=== PATIENT | female | born 1955 | race Caucasian/White ===

== ENCOUNTER 2019-02-16 21:01 | Emergency (ER) | payer BC, OTHER ==
--- NOTE | 2019-02-16 21:18 | EDPHY ---
H & P Stated Complaint: UTI symptoms, back pain, "I feel a little confused", fever Time Seen by Provider: 02/16/19 21:18 - Personal History Current Tetanus/Diphtheria Vaccine: Yes Current Tetanus Diphtheria and Acellular Pertussis (TDAP): Yes - Medical/Surgical History Hx Asthma: No Hx Chronic Respiratory Disease: No Hx Diabetes: No Hx Cardiac Disease: No Hx Renal Disease: No Hx Cirrhosis: No Hx Alcoholism: No Hx HIV/AIDS: No Hx Splenectomy or Spleen Trauma: No Other PMH: bladder sling, cervical fusion, tubal ligation - Social History Smoking Status: Never smoked Constitutional: Initial Vital Signs Temperature (C) 37.3 C 02/16/19 21:09 Heart Rate 104 H 02/16/19 21:09 Respiratory Rate 20 02/16/19 21:09 Blood Pressure 160/100 H 02/16/19 21:09 O2 Sat (%) 96 02/16/19 21:09 O2 Delivery Mode Room Air Allergies/Adverse Reactions: No Known Allergies Allergy (Unverified 02/16/19 21:08) Home Medications: Medication Instructions Recorded Cephalexin [Keflex (RX)] 500 mg PO TID #30 cap 02/16/19 Cholecalciferol (Vitamin D3) 02/16/19 [Vitamin D3] Meth/Meblue/Sod Phos/Psal/Hyos 02/16/19 [Uribel Capsule] Nitrofurantoin Macrobid [Macrobid] 02/16/19 amLODIPine BESYLATE [Norvasc 10 mg 02/16/19 (*)] Medical Decision Making ED Course/Re-evaluation: CHIEF COMPLAINT: UTI symptoms, back pain HISTORY OF PRESENT ILLNESS: The patient is a 64 y/o female with a history of a bladder sling and frequent UTI's complaining of feeling dehydrated, having back pain, and feeling confused onset yesterday. After the bladder sling surgery, she developed frequent bladder infections and was placed on Macrobid prophylactically. Starting yesterday she developed a burning sensation when she urinated, so she started taking Macrobid. She then developed bilateral back pain and a headache, so she presented to an urgent care. She was advised to take Keflex for her symptoms. However, she has not taken this antibiotic yet, but her symptoms have not improved. No fever, body aches, lightheadedness, chest pain, heart palpitations , shortness of breath, cough, abdominal pain, bowel complaints, numbness, paresthesias. REVIEW OF SYSTEMS: A comprehensive 10 system review of systems is otherwise negative aside from elements mentioned in the history of present illness and medical decision making. PHYSICAL EXAM: HR, BP, O2 Sat, RR. Temp noted General Appearance: Alert, well hydrated, appropriate, and non-toxic appearing. Head: Atraumatic without scalp tenderness or obvious injury Eyes: Pupils equal, round, reactive to light and accommodation, EOMI, no trauma , no injection. Ears: Clear bilaterally, no perforation, normal landmarks Nose: Atraumatic, no rhinorrhea, clear. Throat: There is no erythema or exudates, no lesions, normal tonsils, mucus membranes moist. Neck: Supple, 2+ carotid upstroke, nontender, no lymphadenopathy. Respiratory: No retractions, no distress, no wheezes, and no accessory muscle use. Lungs are clear to auscultation bilaterally. Cardiovascular: Regular rate and rhythm, no murmurs, rubs, or gallops. Bilateral carotid, radial, dorsalis pedis, and posterior tibial pulses intact. Good capillary refill all extremities. Gastrointestinal: Abdomen is soft, nontender, non-distended, no masses, no rebound, no guarding, no peritoneal signs. Back: Bilateral CVA tenderness to palpation. Musculoskeletal: Normal active ROM of all extremities, atraumatic. Neurological: Alert, appropriate, and interactive. The patient has normal DTRs and non-focal cranial nerves, motor, sensory, and cerebellar exam. Skin: No rashes, good turgor, no nodules on palpation. Past medical history: Frequent UTI's Past surgical history: Bladder sling, cervical fusion, tubal ligation Family history: Denies Social history: Recently moved to [place] from [place], retired, DIAGNOSTICS/PROCEDURES/CRITICAL CARE TIME: Not indicated. DIFFERENTIAL DIAGNOSIS: The differential diagnosis for the patient's flank pain included but was not limited to musculoskeletal causes, kidney stone, pyelonephritis, shingles, diverticulitis, appendicitis, and aortic aneurysm. MEDICAL DECISION MAKING: The patient is a 64 y/o female with a history of a bladder sling and frequent UTI's presenting with feeling dehydrated, having back pain, and feeling confused onset yesterday. After the bladder sling surgery, she developed frequent bladder infections and was placed on Macrobid prophylactically. Starting yesterday she developed a burning sensation when she urinated, so she started taking Macrobid. On exam she has bilateral CVA tenderness. I suspect she has an uncomplicated pyelonephritis. Labs ordered; 1gm IV Ceftriaxone and 1L IV NS administered. I will also prescribe this patient Keflex for the pyelonephritis. 2147: Reassessed patient and discussed labs which reveal a UTI. I have discussed plan for Keflex, which she is comfortable with. She is requesting a referral to a PCP, urologist, and director of professional services as she is in [place] for 9 months. Return precautions provided; patient is comfortable with this plan. - Data Points Laboratory Results: 02/16/19 21:10 Urine Color YELLOW Urine Appearance CLEAR Urine pH 7.0 (5.0-7.5) Ur Specific [place] 1.012 (1.002-1.030) Urine Protein NEGATIVE (NEGATIVE) Urine Ketones 1+ H (NEGATIVE) Urine Blood NEGATIVE (NEGATIVE) Urine Nitrate NEGATIVE (NEGATIVE) Urine Bilirubin NEGATIVE (NEGATIVE) Urine Urobilinogen NEGATIVE EU EU (0.2-1.0) Ur Leukocyte Esterase TRACE H (NEGATIVE) Urine RBC 5-10 /hpf H /hpf (0-3) Urine WBC 15-25 /hpf H /hpf (0-3) Ur Epithelial Cells TRACE /lpf /lpf (NONE-1+) Urine Bacteria TRACE /hpf H /hpf (NONE SEEN) Urine Glucose NEGATIVE (NEGATIVE) Medications Given: Ceftriaxone Sodium/Dextrose (Rocephin 1 Gm (Premix)) 50 mls @ 100 mls/hr IV EDNOW ONE PRN Reason: Protocol Stop: 02/16/19 21:53 Last Admin: 02/16/19 21:30 Dose: 50 mls Discontinued Medications Sodium Chloride (Ns) 1,000 mls @ 0 mls/hr IV ONCE ONE; Wide Open PRN Reason: Protocol Stop: 02/16/19 21:22 Last Admin: 02/16/19 21:24 Dose: 1,000 mls Departure - Departure Disposition: Home, Routine, Self-Care Clinical Impression: Acute pyelonephritis Condition: Good Instructions: Urinary Tract Infection in Women (ED), Flank Pain (ED) Additional Instructions: 1. Take Keflex as prescribed. 2. Follow-up with your primary doctor within 72 hours. 3. Return to the Emergency Department for fever, worsening pain, flank pain or failure to improve within 72 hours. 4. I have also referred you to a urologist, director of professional services, and primary care provider. Referrals: Alma Malin MD [Medical Doctor] - As per Instructions Brooke Guy MD [Medical Doctor] - As per Instructions Johana Herrera MD [Medical Doctor] - As per Instructions Prescriptions: Cephalexin [Keflex (RX)] 500 mg PO TID #30 cap Report Scribed for: Kaushal Braga Report Scribed by: Avril Sanches Date of Report: 02/16/19 Time of Report: 21:20
[2019-02-16] MEDS ORDERED: NS 1,000 ML IV ONE (21:21)
[2019-02-16 22:06] VITALS: BP 173/94
== END 2019-02-16 22:24 | disposition home or self-care (01) ==
DX: N12 Tubulo-interstitial nephritis, not specified as acute or chronic (principal); E86.9 Volume depletion, unspecified; Z96.0 Presence of urogenital implants
CPT/HCPCS: 96365; J0696